=== PATIENT | male | born 1995 | race African-American/Black ===

== ENCOUNTER 2018-12-11 16:38 | Observation (INO) | payer BC ==
[~2018-12-11] VITALS: Ht 190.5 cm; Wt 84.2 kg
[2018-12-11] MEDS ORDERED: IV NORMAL SALINE 1,000ML 1,000 ML IV SCH (16:55)
[2018-12-11 17:10] LABS: BASO % 0 % (0-3); EOS % 1 % (0-3); HEMATOCRIT 46.3 % (39.0-53.0); HEMOGLOBIN 15.1 g/dL (13.0-17.5); LYMPH # 1.7 x10^3/uL (1.0-4.8); LYMPH % 35 % (24-48); MEAN CORPUSCULAR HEMOGLOBIN 28 pg (25-35); MEAN CORPUSCULAR HGB CONC 33 g/dL (31-37); MEAN CORPUSCULAR VOLUME 87 fL (79-100); MONO # 0.2 x10^3/uL (0.0-1.1); MONO % 5 % (0-9); NEUT # 2.9 x10^3uL (1.8-7.7); NEUT % 58 % (31-73); PLATELET COUNT 215 x10^3/uL (140-400); RED BLOOD COUNT 5.32 x10^6/uL (4.30-5.70); RED CELL DISTRIBUTION WIDTH 13.6 % (11.5-14.5); WHITE BLOOD COUNT 4.9 x10^3/uL (4.0-11.0)
[2018-12-11 17:29] LABS: ALBUMIN 4.5 g/dL (3.4-5.0); ALBUMIN/GLOBULIN RATIO 1.3 (1.0-1.7); CALCIUM 10.2 mg/dL (8.5-10.1); CREATININE 1.2 mg/dL (0.7-1.3); GFR 92.5; MAGNESIUM 2.1 mg/dL (1.8-2.4); POTASSIUM 3.4 mmol/L (3.5-5.1); TOTAL BILIRUBIN 1.7 mg/dL (0.2-1.0)
--- NOTE | 2018-12-11 17:39 | PHYS DOC ---
Past History Past Medical History: Asthma (KACEY ARNOLD MD) Alcohol Use: None Drug Use: None (KACEY ARNOLD MD) Adult General Chief Complaint Chief Complaint: CHEST PAIN HPI HPI Patient is a 23 year old male who presents with turning of chest pain. Patient complaining of intermittent episodes of tightness in bilateral chest and substernal area for the last 5-7 days that usually last for few minutes and getting worse with movement and activity. Patient rated his pain 5/10 and denies shortness of breath, palpitation, nausea, vomiting, focal neuro deficit, fever and chills, cough and congestion, history of the same pain. Patient started taking football practice at [employer] last week. Patient did not get any pain medication. (KACEY ARNOLD MD) Review of Systems Review of Systems Constitutional: Denies fever or chills [] Eyes: Denies change in visual acuity, redness, or eye pain [] HENT: Denies nasal congestion or sore throat [] Respiratory: Denies cough or shortness of breath [] Cardiovascular: No additional information not addressed in HPI [] GI: Denies abdominal pain, nausea, vomiting, bloody stools or diarrhea [] : Denies dysuria or hematuria [] Musculoskeletal: Denies back pain or joint pain [] Integument: Denies rash or skin lesions [] Neurologic: Denies headache, focal weakness or sensory changes [] Endocrine: Denies polyuria or polydipsia [] All other systems were reviewed and found to be within normal limits, except as documented in this note. (KACEY ARNOLD MD) Current Medications Current Medications Current Medications Medications (Trade) Dose Ordered Sig/Shahrzad Start Time Stop Time Status Last Admin Dose Admin Sodium Chloride 1,000 ml @ 1,000 mls/hr Q1H 12/11/18 16:55 12/11/18 17:54 12/11/18 16:55 1,000 MLS/HR (KACEY ARNOLD MD) Allergies Allergies Allergies Coded Allergies Type Severity Reaction Last Updated Verified No Known Drug Allergies 12/11/18 No (KACEY ARNOLD MD) Physical Exam Physical Exam Constitutional: Well developed, well nourished, no acute distress, non-toxic appearance. [] HENT: Normocephalic, atraumatic. Eyes: PERRLA, EOMI, conjunctiva normal, no discharge. [] Neck: Normal range of motion, no tenderness, supple, no stridor. [] Cardiovascular:Heart rate regular rhythm, no murmur [] Lungs & Thorax: Bilateral breath sounds clear to auscultation [] Abdomen: Bowel sounds normal, soft, no tenderness, no masses, no pulsatile masses. [] Skin: Warm, dry, no erythema, no rash. [] Back: No tenderness, no CVA tenderness. [] Extremities: No tenderness, no cyanosis, no clubbing, ROM intact, no edema. [] Neurologic: Alert and oriented X 3, normal motor function, normal sensory function, no focal deficits noted. [] Psychologic: Affect normal, judgement normal, mood normal. [] (KACEY ARNOLD MD) Current Patient Data Vital Signs Vital Signs Date Time Temp Pulse Resp B/P (MAP) Pulse Ox O2 Delivery O2 Flow Rate FiO2 12/11/18 16:50 98.2 57 16 100 Room Air Lab Results Laboratory Tests Test 12/11/18 16:47 White Blood Count 4.9 x10^3/uL (4.0-11.0) Red Blood Count 5.32 x10^6/uL (4.30-5.70) Hemoglobin 15.1 g/dL (13.0-17.5) Hematocrit 46.3 % (39.0-53.0) Mean Corpuscular Volume 87 fL (79-100) Mean Corpuscular Hemoglobin 28 pg (25-35) Mean Corpuscular Hemoglobin Concent 33 g/dL (31-37) Red Cell Distribution Width 13.6 % (11.5-14.5) Platelet Count 215 x10^3/uL (140-400) Neutrophils (%) (Auto) 58 % (31-73) Lymphocytes (%) (Auto) 35 % (24-48) Monocytes (%) (Auto) 5 % (0-9) Eosinophils (%) (Auto) 1 % (0-3) Basophils (%) (Auto) 0 % (0-3) Neutrophils # (Auto) 2.9 x10^3uL (1.8-7.7) Lymphocytes # (Auto) 1.7 x10^3/uL (1.0-4.8) Monocytes # (Auto) 0.2 x10^3/uL (0.0-1.1) Eosinophils # (Auto) 0.0 x10^3/uL (0.0-0.7) Basophils # (Auto) 0.0 x10^3/uL (0.0-0.2) Troponin I Quantitative < 0.017 ng/mL (0-0.055) (KACEY ARNOLD MD) Lab Results Laboratory Tests Test 12/11/18 16:47 White Blood Count 4.9 x10^3/uL Red Blood Count 5.32 x10^6/uL Hemoglobin 15.1 g/dL Hematocrit 46.3 % Mean Corpuscular Volume 87 fL Mean Corpuscular Hemoglobin 28 pg Mean Corpuscular Hemoglobin Concent 33 g/dL Red Cell Distribution Width 13.6 % Platelet Count 215 x10^3/uL Neutrophils (%) (Auto) 58 % Lymphocytes (%) (Auto) 35 % Monocytes (%) (Auto) 5 % Eosinophils (%) (Auto) 1 % Basophils (%) (Auto) 0 % Neutrophils # (Auto) 2.9 x10^3uL Lymphocytes # (Auto) 1.7 x10^3/uL Monocytes # (Auto) 0.2 x10^3/uL Eosinophils # (Auto) 0.0 x10^3/uL Basophils # (Auto) 0.0 x10^3/uL Sodium Level 140 mmol/L Potassium Level 3.4 mmol/L Chloride Level 104 mmol/L Carbon Dioxide Level 31 mmol/L Anion Gap 5 Blood Urea Nitrogen 8 mg/dL Creatinine 1.2 mg/dL Estimated GFR (Cockcroft-Gault) 92.5 BUN/Creatinine Ratio 7 Glucose Level 85 mg/dL Calcium Level 10.2 mg/dL Magnesium Level 2.1 mg/dL Total Bilirubin 1.7 mg/dL Aspartate Amino Transf (AST/SGOT) 224 U/L Alanine Aminotransferase (ALT/SGPT) 66 U/L Alkaline Phosphatase 55 U/L Creatine Kinase 13490 U/L Troponin I Quantitative < 0.017 ng/mL Total Protein 8.0 g/dL Albumin 4.5 g/dL Albumin/Globulin Ratio 1.3 Lipase 62 U/L Current Medications Medications (Trade) Dose Ordered Sig/Shahrzad Route PRN Reason Start Time Stop Time Status Last Admin Dose Admin Sodium Chloride 1,000 ml @ 1,000 mls/hr Q1H IV 12/11/18 16:55 12/11/18 17:54 DC 12/11/18 16:55 (BREANN GUADALUPE MD) EKG EKG EKG interpreted by me. EKG at 1700 showed normal sinus rhythm at rate of 59, normal AK and QT intervals, no acute ST and T-wave abnormalities. (KACEY ARNOLD MD) Radiology/Procedures Radiology/Procedures Chest X interpreted by me and did not show any acute finding. (KACEY ARNOLD MD) Course & Med Decision Making Course & Med Decision Making Pertinent Labs and Imaging studies reviewed. (See chart for details) Evaluation of patient in ER showed 23-year-old male patient with complaining of chest pain after starting . Patient had unremarkable EKG and exam. CPK is pending. Sign out given to for further evaluation and final disposition. Discussed current findings and plan with patient and family, who acknowledge understanding and agreement. (KACEY ARNOLD MD) Course & Med Decision Making I took over care of patient from Dr. Arnold at 1800. The patient's CPK level was found to be dangerously elevated at above 26,000. Patient diagnosed with acute rhabdomyolysis. The patient received 2 L of IV fluids in the emergency department. The patient is at high risk for acute kidney injury if not started on aggressive IV hydration. The patient will need to continue on continuous IV fluids with repeat metabolic panel and CPK tomorrow morning. I spoke with Dr. Hanson who accepted care of patient in hospital. (BREANN GUADALUPE MD) Dragon Disclaimer Dragon Disclaimer This electronic medical record was generated, in whole or in part, using a voice recognition dictation system. (KACEY ARNOLD MD) Departure Departure: Impression: Primary Impression: Non-traumatic rhabdomyolysis Disposition: ADMITTED INPATIENT Admitting Physician: Nikos Hanson Other (BREANN GUADALUPE MD) Condition: STABLE Referrals: PCP,NO (PCP) HEART Score for Chest Pain PTs The HEART Score for CP Pts HEART Score for Chest Pain: HEART Score for Chest Pain Response (Comments) Value History Slighlty/Non-Suspicious 0 ECG Normal 0 Age < 45 0 Risk Factors No Risk Factors 0 Troponin < Normal Limit 0 Total 0 Risk Factors: Risk Factors: DM, Current or recent (<one month) smoker, HTN, HLP, family history of CAD, obesity. Risk Scores: Score 0 - 3: 2.5% MACE over next 6 weeks - Discharge Home Score 4 - 6: 20.3% MACE over next 6 weeks - Admit for Clinical Observation Score 7 - 10: 72.7% MACE over next 6 weeks - Early Invasive Strategies (KACEY ARNOLD MD) HEART Score for Chest Pain: HEART Score for Chest Pain Response (Comments) Value History Slighlty/Non-Suspicious 0 ECG Normal 0 Age < 45 0 Risk Factors No Risk Factors 0 Troponin < Normal Limit 0 Total 0 KACEY ARNOLD MD Dec 11, 2018 17:39 BREANN GUADALUPE MD Dec 11, 2018 19:03
[2018-12-11] MEDS ORDERED: ACETAMINOPHEN 325 MG TABLET PO PRN (19:00)
[2018-12-11] MEDS ORDERED: ONDANSETRON PF 4 MG/2 ML VIAL. IV PRN (19:00)
[2018-12-11] MEDS: IV NORMAL SALINE 1,000ML 1,000 ML IV SCH (21:00)
[2018-12-11 21:20] VITALS: BP 159/92
--- NOTE | 2018-12-11 21:56 | RAD ---
CHEST PA LATERAL Technique: PA and lateral views of the chest were obtained. Clinical History: Right-sided chest pain Comparison: None. Findings: The heart and pulmonary vasculature appear within normal limits. The lungs are clear. The pleural margins are clear. Impression: No acute chest process is seen. Electronically signed by: Norm Myers III, MD (12/11/2018 9:53 PM) [facility]
[2018-12-11 23:23] VITALS: BP 154/88
[2018-12-12] MEDS ORDERED: ALBU2.5V8 INH (00:05)
[2018-12-12] MEDS: IV NORMAL SALINE 1,000ML 1,000 ML IV SCH (04:56)
[2018-12-12 05:38] VITALS: BP 144/84
[2018-12-12 06:32] LABS: BASO % 1 % (0-3); EOS # 0.1 x10^3/uL (0.0-0.7); EOS % 3 % (0-3); HEMATOCRIT 40.7 % (39.0-53.0); HEMOGLOBIN 13.2 g/dL (13.0-17.5); LYMPH # 1.9 x10^3/uL (1.0-4.8); LYMPH % 51 % (24-48); MEAN CORPUSCULAR HEMOGLOBIN 28 pg (25-35); MEAN CORPUSCULAR HGB CONC 32 g/dL (31-37); MEAN CORPUSCULAR VOLUME 87 fL (79-100); MONO # 0.2 x10^3/uL (0.0-1.1); MONO % 6 % (0-9); NEUT # 1.4 x10^3uL (1.8-7.7); NEUT % 39 % (31-73); PLATELET COUNT 173 x10^3/uL (140-400); RED BLOOD COUNT 4.69 x10^6/uL (4.30-5.70); RED CELL DISTRIBUTION WIDTH 13.6 % (11.5-14.5); WHITE BLOOD COUNT 3.6 x10^3/uL (4.0-11.0)
[2018-12-12 06:38] LABS: CALCIUM 8.8 mg/dL (8.5-10.1); CREATININE 1.1 mg/dL (0.7-1.3); GFR 102.2; POTASSIUM 3.9 mmol/L (3.5-5.1)
--- NOTE | 2018-12-12 07:39 | HP ---
ADMIT DATE: 12/11/2018 ATTENDING PHYSICIAN: Dr. August Johnson. CHIEF COMPLAINT: Weakness and chest wall pain. 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 He was out in a practice game. 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 The workup showed no evidence of any coronary ischemia. Chest x-ray was clear. EKG unremarkable. He was dehydrated and he had an elevated CPK due to some mild rhabdomyolysis. He was called for admission, hydration and repeat CPK. PAST MEDICAL HISTORY: Quite unremarkable. ALLERGIES: He has no known drug allergies. 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 There is no history of asthma. MEDICATIONS: None. ALLERGIES: None. FAMILY HISTORY: Noncontributory. REVIEW OF SYSTEMS: Significant for the increased practice and times he has been out in the heat. He denied any loss of consciousness. The chest pain is localized and reproducible. No nausea. Some minimal weakness. All other systems reviewed and determined to be negative. PHYSICAL EXAMINATION: GENERAL: When I saw him, this is a very healthy young appearing 23-year-old male. VITAL SIGNS: His initial vital signs showed a blood pressure of 144/84, pulse was 56 and regular. He was afebrile. HEENT: Head is without trauma. Pupils are reactive. Sclerae nonicteric. Oropharynx clear. NECK: Supple. No bruits identified. LUNGS: Otherwise clear. CARDIOVASCULAR: Showed regular heart tones. No obvious gallop. Peripheral pulses are palpable and full. ABDOMEN: Soft, scaphoid, nontender, no organomegaly. Bowel sounds are hypoactive. EXTREMITIES: Show no cyanosis or edema. NEUROLOGIC: Focally intact. SKIN: Warm and dry. PERTINENT LABORATORY STUDIES: He had an elevated CPK of 26,496. Troponin was unremarkable. Creatinine 1.2 mg/dL. Sodium 140, potassium 3.4 mEq, AST and transaminase is slightly elevated. IMPRESSION: 1. 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 2. Asymptomatic rhabdomyolysis. PLAN: 1. Admit to the hospital. 2. Gentle IV hydration. 3. Serial chemistry. 4. Diet as tolerated. AUGUST JOHNSON MD DR: SADAF/hardik JOB#: [id number] / [id number]
--- NOTE | 2018-12-12 16:58 | DS ---
DATE OF DISCHARGE: 12/12/2018 ATTENDING PHYSICIAN: Dr. Johnson FINAL DISCHARGE DIAGNOSES: 1. Dehydration. 2. Rhabdomyolysis, asymptomatic, improved. 3. Atypical chest wall pain, improved. 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 He was admitted with dehydration and rhabdomyolysis, asymptomatic. His CPK was 26,000. PHYSICAL EXAMINATION: Please see the dictated note. PERTINENT LABORATORY AND X-RAY STUDIES: Admission creatinine was 1.2 mg/dL with hydration repeated next day was down to 1.1 mg/dL. Potassium was replaced with 3.9 mEq per liter. CPK halved and was down to 13,880. He felt fine. He had no other symptoms. Diet was tolerated. Therefore, on the second hospital day, he was discharged to home. I recommended copious amounts of fluids and especially Gatorade to help with the electrolyte imbalance. He understands and is aware that there is no restriction on diet. The patient was then discharged from our hospital in stable condition with explicit instructions and followup care. AUGUST JOHNSON MD DR: SADAF/hardik JOB#: [id number] / [id number]
--- NOTE | 2018-12-21 13:31 | EKG ---
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
--- NOTE | 2018-12-21 13:48 | EKG ---
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
== END 2018-12-12 08:20 | disposition home or self-care (01) ==
LOC: ER 16:38 → INTOOBSV 18:38 → 1 SOUTH 18:38
PROVIDERS: ADMIT Hospitalist; ATTEND Hospitalist
DX: E86.0 Dehydration (principal); M62.82 Rhabdomyolysis; R07.89 Other chest pain; J45.909 Unspecified asthma, uncomplicated
CPT/HCPCS: 36415; 71046; 80048; 80053; 82550; 83690; 83735; 84484; 85025; 93005; 96360; 96361; 99284; G0378; G0379; J7030